=== PATIENT | male | born 1960 | race African-American/Black ===

== ENCOUNTER 2019-10-11 14:00 | Outpatient (CLI) | payer OTHER ==
[2019-10-12 13:50] LABS: SARS-CoV-2 MS2 Positive; SARS-CoV-2 N Gene Negative; SARS-CoV-2 S Gene Negative; SARS-CoV-2 orf1ab Negative
== END 2019-10-11 14:01 | disposition home or self-care (01) ==
LOC: LABBT 14:00
PROVIDERS: ATTEND Surgery
DX: Z01.812 Encounter for preprocedural laboratory examination (principal); Z11.59 Encounter for screening for other viral diseases; D17.1 Benign lipomatous neoplasm of skin and subcutaneous tissue of trunk
CPT/HCPCS: 87635; U0003

== ENCOUNTER 2020-04-06 08:50 | Outpatient (CLI) | payer OTHER ==
--- NOTE | 2020-04-06 09:40 | RAD ---
LUMBAR SPINE 2 VIEWS: INDICATION: Postop followup. Lumbar radiculopathy. COMPARISON: Comparison is made to lumbar films from 2017. FINDINGS: Postop changes are now noted with pedicle screws on the right at L4, L5, and S1. Interbody implants at both of these levels. Posterior alignment is preserved. There are degenerative changes with mode rate spurring at these levels which was present previously. The L1, L2, and L3 lumbar vertebrae maintain height and alignment and the disk spaces above L4 are pr eserved normally. Postop changes are noted with posterior skin art. IMPRESSION: Postoperative changes of the lumbar spine as described. POS: AGW
== END 2020-04-06 08:51 | disposition home or self-care (01) ==
LOC: TBSIIMAG 08:50
PROVIDERS: ATTEND Neurological Surgery
DX: M54.16 Radiculopathy, lumbar region (principal); Z98.890 Other specified postprocedural states
CPT/HCPCS: 72100

== ENCOUNTER 2020-05-29 09:20 | Outpatient (CLI) | payer OTHER ==
--- NOTE | 2020-05-29 09:38 | RAD ---
XR Lumbar Spine 2 Or 3 View History: Degenerative disc disease, lumbar spine Comparison: Radiograph January 2020 Findings: Unilateral right posterior spinal fusion hardware including transpedicular screws and inter connecting rods at L4-S1. Unilateral right discectomy change without further migration of the disc cages. No acute fracture or malalignment. No significant new listhesis. Chronic L4/L5 retrolisthesis. Impression: 1. Similar postoperative appearance of the lumbar spine. 2. Progressive severe degenerative disease of the right hip.
== END 2020-05-29 09:21 | disposition home or self-care (01) ==
LOC: TBSIIMAG 09:20
PROVIDERS: ATTEND Neurological Surgery
DX: M51.36 Other intervertebral disc degeneration, lumbar region (principal); M16.11 Unilateral primary osteoarthritis, right hip; Z98.890 Other specified postprocedural states
CPT/HCPCS: 72100

== ENCOUNTER 2020-07-26 08:52 | Outpatient (CLI) | payer OTHER | END 2020-07-26 08:53 | disposition home or self-care (01) | LOC: TBSIIMAG 08:52 | PROVIDERS: ATTEND Neurological Surgery | DX: M51.36 Other intervertebral disc degeneration, lumbar region (principal); M47.816 Spondylosis without myelopathy or radiculopathy, lumbar region; M16.11 Unilateral primary osteoarthritis, right hip; Z98.890 Other specified postprocedural states | CPT/HCPCS: 72100 ==